=== PATIENT | male | born 1975 | race Caucasian/White ===

== ENCOUNTER 2019-07-26 07:57 | Emergency (ER) | payer OTHER ==
[2019-07-26 08:50] LABS: ADD MAN DIFF? NO
[2019-07-26 08:53] LABS: BASOPHILS % 0.6 % (0.0-2.0); EOSINOPHILS # 0.1 10^3/ul (0.0-0.5); EOSINOPHILS % 1.8 % (0.0-7.0); HEMATOCRIT 31.2 % (42.0-52.0); LYMPHOCYTES % 19.9 % (15.0-51.0); MEAN CORPUSCULAR HGB CONC 32.1 g/dl (32.0-37.0); MEAN PLATELET VOLUME 10.3 fl (7.4-10.4); MONOCYTE # 0.5 10^3/ul (0.3-0.9); MONOCYTES % 10.7 % (0.0-11.0); NEUTROPHIL # 3.3 10^3/ul (1.6-7.5); NEUTROPHILS % 66.6 % (39.0-77.0); PLATELET COUNT 121 10^3/UL (140-415); RED BLOOD COUNT 3.03 10^6/ul (4.70-6.10); RED CELL DISTRIBUTION WIDTH 14.4 % (11.5-14.5)
[2019-07-26 08:53] LABS: WHITE BLOOD COUNT 4.9 10^3/ul (4.8-10.8)
[2019-07-26 09:12] LABS: INR 1.24; PROTIME 15.7 Sec (11.9-14.9); PT RATIO 1.2
[2019-07-26 09:15] LABS: ANION GAP 12 (5-13); BLOOD UREA NITROGEN 24 mg/dl (7-20); CALCIUM 9.2 mg/dl (8.4-10.2); CARBON DIOXIDE 28 mmol/L (21-31); CHLORIDE 93 mmol/L (97-110); CREATININE 5.58 mg/dl (0.61-1.24); Estimated GFR 11 mL/min (>60); GLUCOSE 90 mg/dl (70-220); POTASSIUM 3.1 mmol/L (3.5-5.1); SODIUM 133 mmol/L (135-144)
[2019-07-26 09:28] LABS: B-TYPE NATRIURETIC PEPTIDE 7080 PG/ML (0-125); TROPONIN-I 0.026 ng/ml (0.000-0.120)
[2019-07-26 09:29] LABS: PARTIAL THROMBOPLASTIN TIME 139.3 Sec (23.0-35.0)
== END 2019-07-26 15:04 | disposition home or self-care (01) ==
LOC: E/R 07:57
DX: T82.198A Other mechanical complication of other cardiac electronic device, initial encounter (principal); I95.9 Hypotension, unspecified; N18.6 End stage renal disease; D53.9 Nutritional anemia, unspecified; E87.6 Hypokalemia; D69.6 Thrombocytopenia, unspecified; I50.9 Heart failure, unspecified; I13.2 Hypertensive heart and chronic kidney disease with heart failure and with stage 5 chronic kidney disease, or end stage renal disease; Y71.2 Prosthetic and other implants, materials and accessory cardiovascular devices associated with adverse incidents; Z99.2 Dependence on renal dialysis; Z79.82 Long term (current) use of aspirin
CPT/HCPCS: 71045; 80048; 83880; 84484; 85025; 85610; 85730; 93005; 99285-25